=== PATIENT | male | born 1990 | race Caucasian/White ===

== ENCOUNTER 2020-12-31 06:03 | Emergency (ER) | payer BC, SELFPAY ==
--- NOTE | ~2020-12-31 | XR_ITS ---
EXAMINATION: XR chest 2V DATE: 12/31/2020 07:10 INDICATION: Sharp left-sided chest pain. TECHNIQUE: PA and lateral views of the chest were obtained. COMPARISON: None FINDINGS: The lungs are clear with no focal airspace opacities, pulmonary edema, pleural effusion or pneumothor ax. The cardiomediastinal silhouette is normal. Mild anterior wedging of a couple lower thoracic vert ebral bodies, likely T11 and T12. IMPRESSION: 1. No acute cardiopulmonary disease. Reviewed, dictated and finalized at location A.
[2020-12-31 06:14] VITALS: BP 132/82; PULSE 75; RESP 13; TEMP 36.2; O2SAT 100
[2020-12-31 07:14] VITALS: BP 120/94; PULSE 65; RESP 16; O2SAT 100
--- NOTE | 2020-12-31 08:15 | ED.GENADULT ---
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 He did not seek immediate medical attention. He describes his pain as sharp and rates it as 6/10. Pain is worse with movement. He also noticed a slight bruise on left chest wall, which is fading away. He has no cough, shortness of breath, abdominal pain, nausea or vomiting. He has no head injury, LOC, neck pain or back pain. Related Data Allergies Allergy/AdvReac Type Severity Reaction Status Date / Time No Known Drug Allergies Allergy Unknown Unknown Verified 12/31/20 06:25 Review of Systems Constitutional: Constitutional: Denies chills, Denies fever(s), Denies headache(s) and Denies weakness Eyes: Eyes: Denies blurry vision ENT: Denies headache(s) and Denies neck pain Cardiovascular: Cardiovascular: Reports chest pain and Denies dyspnea Respiratory: Respiratory: Denies cough and Denies dyspnea Gastrointestinal: Gastrointestinal: Denies abdominal pain, Denies diarrhea, Denies nausea and Denies vomiting Genitourinary: Genitourinary: Denies hematuria and Denies dysuria Musculoskeletal: Musculoskeletal: Denies back pain and Denies neck pain Neurologic: Denies headache(s) and Denies weakness PMFSH Social History Social History Gender identity (if verbalized by the patient): Male Exam Const: General: no acute distress and well developed Orientation/consciousness: oriented to person, oriented to place, oriented to time and patient oriented x3 HENMT: Head: normocephalic Ears: external ears normal General nose exam: Normal external nose present Eyes: General: appearance normal, both eyes and all related structures Conjunctivae: conjunctivae normal Neck: Neck: normal visual inspection and full ROM Chest: Chest palpation & inspection: normal inspection of the chest and no tenderness Resp: Effort & Inspection: normal respiratory effort Auscultation: clear to auscultation bilaterally Cardio: Rate: regular rate Rhythm: regular rhythm GI: GI Palp: No abdominal tenderness and Yes Soft to palpation Skin: General skin exam: normal color, turgor normal and ecchymosis (faint bruise left chest wall) Neuro: General: oriented to person, oriented to place, oriented to time and patient oriented x3 Cognition (Neuro): normal cognition Extrem: General: normal to inspection, full ROM and no pedal edema Psych: Appearance: grossly normal Mental Status: mental status grossly normal Affect: normal affect Course Vital Signs Vital signs: Vital Signs Temperature 36.2 C L 12/31/20 06:14 Pulse Rate 75 12/31/20 06:14 Respiratory Rate 13 12/31/20 06:14 Blood Pressure 132/82 12/31/20 06:14 Pulse Oximetry 100 12/31/20 06:14 Temperature 36.2 C L 12/31/20 06:14 Pulse Rate 65 12/31/20 07:14 Respiratory Rate 16 12/31/20 07:14 Blood Pressure 120/94 H 12/31/20 07:14 Pulse Oximetry 100 12/31/20 07:14 Medical Decision Making Vital Signs Vital Signs: Vital Signs Temperature 36.2 C L 12/31/20 06:14 Pulse Rate 75 12/31/20 06:14 Respiratory Rate 13 12/31/20 06:14 Blood Pressure 132/82 12/31/20 06:14 Pulse Oximetry 100 12/31/20 06:14 Temperature 36.2 C L 12/31/20 06:14 Pulse Rate 65 12/31/20 07:14 Respiratory Rate 16 12/31/20 07:14 Blood Pressure 120/94 H 12/31/20 07:14 Pulse Oximetry 100 12/31/20 07:14 Discharge Plan Discharge Clinical Impression: Chest wall contusion Qualifiers: Encounter type: initial encounter Laterality: left Qualified Code(s): S20.212A - Contusion of left front wall of thorax, initial encounter Patient Disposition: Home, Self-Care Condi
[2020-12-31 08:43] VITALS: BP 116/75; PULSE 67; RESP 18; O2SAT 99
== END 2020-12-31 08:45 | disposition home or self-care (01) ==
PROVIDERS: Emergency Provider Emergency Medicine
DX: S20.212A Contusion of left front wall of thorax, initial encounter (principal); W31.89XA Contact with other specified machinery, initial encounter
CPT/HCPCS: 71046; 99283